=== PATIENT | male | born 1945 | race Caucasian/White ===

== ENCOUNTER 2017-01-17 13:16 | Emergency (ER) | payer MEDICARE, OTHER ==
[2017-01-17] MEDS ORDERED: Albuterol 2.5 MG/3 ML NEB.SOL* (0.083%) INH ONE (13:29)
[2017-01-17] MEDS ORDERED: Ipratropium 0.5MG/2.5ML NEB* 0.5 MG/2.5 ML NEB.SOLN INH ONE (13:29)
[2017-01-17] MEDS ORDERED: methylPREDNISolone 125 MG* 2 ML VIAL IM ONE (13:29)
[2017-01-17] MEDS ORDERED: Ipratropium 0.5MG/2.5ML NEB* 0.5 MG/2.5 ML NEB.SOLN ONE (13:31)
[2017-01-17] MEDS ORDERED: methylPREDNISolone 125 MG* 2 ML VIAL ONE (13:31)
[2017-01-17 13:44] VITALS: BP 136/74
--- NOTE | 2017-01-17 15:54 | UC ---
Milly Rodriguez Emily, scribed for Samira Bell DO on 01/17/17 at 1326 . Allergic Reaction HPI - HPI Summary HPI Summary: This patient is a 71 year old M presenting to urgent care with a chief complaint of allergic reaction that began around 1215. 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 Symptoms aggravated by nothing. Symptoms alleviated by nothing. Patient reports lightheadedness and SOB. Patient denies rash, dizzy/ lightheadedness, n/v/d/abd pain, cp, swelling of lips, tongue, and throat. Pt is allergic to peanuts. Pt denies ingesting any peanuts today. Pt reports symptoms being similar to previous allergic reactions. Medications reviewed this visit. - History of Current Complaint Stated Complaint: ALLERGIC REACTION Hx Obtained From: Patient Onset/Duration: Sudden Onset, Lasting Hours, Still Present Severity Initially: Moderate Severity Currently: Moderate Pain Intensity: 0 Aggravating Factor(s): Nothing Alleviating Factor(s): Nothing Associated Signs And Symptoms: Positive: Cough Wheezing, Difficulty Breathing, Other: - Positive lightheadedness and SOB. Negative swelling of lips, tongue, and throat. Negative: Abdominal Pain, Chest Pain, Diaphoresis, Hoarseness, Lightheadedness, Nausea, Rash, Syncope, Throat Tightening, Vomiting - Related Hx Possible Reaction To: Food - Allergies/Home Medications Allergies/Adverse Reactions: Allergies Allergy/AdvReac Type Severity Reaction Status Date / Time No Known Allergies Allergy Verified 01/17/17 13:27 Home Medications: Home Medications Albuterol HFA INHALER* [Ventolin HFA Inhaler*] 01/17/17 [History] Losartan TAB* [Cozaar TAB*] 01/17/17 [History] PMH/Surg Hx/FS Hx/Imm Hx - Additional Past Medical History Additional PMH: Peanut allergy Previously Healthy: No Other Endocrine History: Hyperlipidemia Cardiovascular History: Hypertension Respiratory History: Asthma - Surgical History Surgical History: Yes Surgery Procedure, Year, and Place: left knee surgery x2 - Family History Known Family History: Positive: None - Social History Occupation: Employed Full-time Lives: With Family Alcohol Use: Daily Substance Use Type: None Smoking Status (MU): Never Smoked Tobacco Review of Systems Skin: Other - Negative swelling of lips, tongue, and throat ENT: Negative Respiratory: Shortness Of Breath Cardiovascular: Negative Gastrointestinal: Negative Neurological: Other - denies dizziness/Lightheadedness All Other Systems Reviewed And Are Negative: Yes Physical Exam Triage Information Reviewed: Yes Appearance: Well-Appearing, No Pain Distress, Obese Vital Signs: Initial Vital Signs Temp 98.9 F 01/17/17 13:39 Pulse 83 01/17/17 13:39 Resp 16 01/17/17 13:39 BP 136/74 01/17/17 13:39 Pulse Ox 97 01/17/17 13:39 Vital Signs Reviewed: Yes Eyes: Positive: Conjunctiva Clear. Negative: Discharge ENT: Positive: Hearing grossly normal, Pharynx normal, Other: - No swelling of the lips or tongue. Negative: Nasal congestion, Nasal drainage, Tonsillar swelling, Tonsillar exudate, Trismus, Muffled/hoarse voice Neck exam: Normal Neck: Positive: Supple Respiratory: Positive: Respiratory distress - Moderate, Decreased breath sounds - diffuse, Accessory muscle use, Other: - Chest was so tight, wheezing only occurred when patient forcefully exhaled. Cardiovascular: Positive: RRR, No Murmur Abdomen Description: Positive: Nontender, Soft Bowel Sounds: Positive: Present Musculoskeletal Exam: Normal Neurological: Positive: Alert, Muscle Tone Normal Psychological Exam: Normal Psychological: Positive: Age Appropriate Behavior Skin: Positive: Other - No rash. Flushed but no urticarial Diagnostics - EKG Cardiac Rate: NL - EKG taken at 1320 reveals sinus rhythm no [address] changes and PVC noted. Ectopy: PVCs Re-Evaluation - Re-Evaluation First Eval Re-Evaluation Time: 14:30 Change: Improved Comment: No wheezing. Pt reported significant subjective improvement in the ease of breathing and flushing had resolved, no respiratory distress. o2 sat 96 % Allergic Reaction Course/Dx - Course Course Of Treatment: This patient is a 71 year old M presenting to urgent care with a chief complaint of allergic reaction that began around 1215. 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 Symptoms aggravated by nothing. Symptoms alleviated by nothing. Patient reports lightheadedness and SOB. Patient denies swelling of lips, tongue, and throat. Pt is allergic to peanuts. Pt denies ingesting any peanuts today. Pt reports symptoms being similar to previous allergic reactions. Medications reviewed this visit. Physical Exam Findings. Obese. Moderate respiratory distress. Chest was so tight, wheezing only occurred when patient forcefully exhaled. No swelling of the lips or tongue. No rash. Flushed , but no urticarial. On re-eval, air flow was significantly improved. No wheezing. Pt reported significant subjective improvement in the ease of breathing and flushing had resolved, no respiratory distress. Medical Decision Making. EKG taken at 1320 reveals sinus rhythm no [address] changes and PVC noted. In the urgent care course the patient was given Albuterol, Solu-Medrol, and Atrovent. Patient will be discharged with prescription for Epipen and Deltasone and follow up from PCP. The patient is agreeable with this plan. - Differential Dx/Diagnosis Provider Diagnoses: Anaphylaxis. General Allergic Reaction Discharge - Discharge Plan Condition: Stable Disposition: HOME Prescriptions: Epinephrine [Epipen 2-Toby] 0.3 mg IM ONCE PRN #1 inj PRN Reason: Allergy Symptoms predniSONE TAB* [Deltasone TAB*] 40 mg PO DAILY #8 tab Patient Education Materials: Anaphylaxis (ED), General Allergic Reaction (ED) Referrals: Non Staff,Doctor [Primary Care Provider] - (FOLLOW UP IN 3-5 DAYS) The documentation as recorded by the Milly luo Emily accurately reflects the service I personally performed and the decisions made by , Samira Bell DO.
== END 2017-01-17 14:55 | disposition home or self-care (01) ==
LOC: UCEAST 13:16
DX: T78.2XXA Anaphylactic shock, unspecified, initial encounter (principal); T78.40XA Allergy, unspecified, initial encounter; E78.5 Hyperlipidemia, unspecified; I10 Essential (primary) hypertension; J45.909 Unspecified asthma, uncomplicated; X58.XXXA Exposure to other specified factors, initial encounter
CPT/HCPCS: 93005; 99202; G0463; J2930; J7644

== ENCOUNTER 2017-09-20 13:24 | Emergency (ER) | payer MEDICARE, OTHER ==
[2017-09-20 13:34] VITALS: BP 155/87
--- NOTE | 2017-09-20 14:01 | UC ---
Throat Pain/Nasal Lázaro HPI - HPI Summary HPI Summary: Got symptoms of a "regular cold" about a month ago with nasal congestion, PND, cough. Most symptoms have resolved except for some occasional nasal drainage, all clear. Since the first week of symptoms pt has had no sense of smell and he continues to struggle with this and diminished taste. Denies fever, facial pain , malaise, wheezing, or other worsening. No previous ENT surgeries. - History of Current Complaint Chief Complaint: UCRespiratory Stated Complaint: COUGH,COLD SYMPTOMS Time Seen by Provider: 09/20/17 13:42 Hx Obtained From: Patient Onset/Duration: Sudden Onset, Lasting Weeks Severity: Mild Pain Intensity: 0 Cough: Productive Associated Signs & Symptoms: Positive: Nasal Discharge. Negative: Wheezing, Hoarseness, Sinus Discomfort, Vomiting, Rash - Allergies/Home Medications Allergies/Adverse Reactions: Allergies Allergy/AdvReac Type Severity Reaction Status Date / Time peanut Allergy Anaphylatic Verified 09/20/17 13:32 Shock PMH/Surg Hx/FS Hx/Imm Hx Cardiovascular History: Hypertension Respiratory History: Asthma - Surgical History Surgical History: Yes Surgery Procedure, Year, and Place: left knee surgery x2 - Family History Known Family History: Positive: Hypertension - Social History Occupation: Retired Lives: With Family Alcohol Use: Daily Alcohol Amount: 2 drinks Substance Use Type: None Smoking Status (MU): Never Smoked Tobacco Review of Systems Constitutional: Negative Skin: Negative Eyes: Negative ENT: Nasal Discharge Respiratory: Negative Cardiovascular: Negative Gastrointestinal: Negative Genitourinary: Negative Motor: Negative Neurovascular: Negative Musculoskeletal: Negative Neurological: Negative Psychological: Negative Is Patient Immunocompromised?: No All Other Systems Reviewed And Are Negative: Yes Physical Exam Triage Information Reviewed: Yes Appearance: Well-Appearing, Well-Nourished Vital Signs: Initial Vital Signs Temp 97.8 F 09/20/17 13:29 Pulse 91 09/20/17 13:29 Resp 18 09/20/17 13:29 BP 155/87 09/20/17 13:29 Pulse Ox 96 09/20/17 13:29 Vital Signs Reviewed: Yes Eye Exam: Normal Eyes: Positive: Conjunctiva Clear ENT: Positive: Hearing grossly normal, Pharynx normal, TMs normal, Other - visible pale bullard, globe-shaped region in L nasal passage separate from turbinate. Negative: Nasal drainage Dental Exam: Normal Neck exam: Normal Neck: Positive: Supple, Nontender, No Lymphadenopathy Respiratory Exam: Normal Respiratory: Positive: Chest non-tender, Lungs clear, Normal breath sounds, No respiratory distress Cardiovascular Exam: Normal Cardiovascular: Positive: RRR, No Murmur Musculoskeletal Exam: Normal Neurological Exam: Normal Neurological: Positive: Alert Psychological Exam: Normal Skin Exam: Normal Throat Pain/Nasal Course/Dx - Course Assessment/Plan: No pain or drainage suggestive of ARBS, discussed this with pt , he is ok treating with steroids for now. Encouraged him to come back here at any time if there is change for the worse and we can start him on abx. - Differential Dx/Diagnosis Provider Diagnoses: L nasal polyp Discharge - Sign-Out/Discharge Documenting (check all that apply): Discharge/Admit/Transfer - Discharge Plan Condition: Stable Disposition: HOME Prescriptions: Beclomethasone Dipropionate [Qnasl] 2 spray BOTH NARES DAILY #1 aer Patient Education Materials: Nasal Polyps (ED) Referrals: Frederick Colunga MD [Medical Doctor] - Additional Instructions: I expect you to have some gradual improvement with this spray over 1-2 weeks, but you still may benefit from ENT evaluation. You can follow up here or with an ENT near home. At any point if you develop fever, facial pain, or increasing drainage, please come back right away and we can start you on an antibiotic. I recommend you take this spray on each side of your nose twice daily for maximum effectiveness. - Billing Disposition and Condition Condition: STABLE Disposition: Home
== END 2017-09-20 14:04 | disposition home or self-care (01) ==
LOC: UCEAST 13:24
DX: J33.9 Nasal polyp, unspecified (principal); I10 Essential (primary) hypertension; J45.909 Unspecified asthma, uncomplicated; Z91.010 Allergy to peanuts
CPT/HCPCS: 99212; G0463

== ENCOUNTER 2018-09-19 13:09 | Emergency (ER) | payer MEDICARE, OTHER ==
[2018-09-19 13:25] VITALS: BP 146/82
--- NOTE | 2018-09-19 13:39 | UC ---
Skin Complaint HPI - HPI Summary HPI Summary: This patient is a 72-year-old male who presents to the urgent care with chief complaint of having a rash under his breast. He reports that is very itchy and not painful. He has no other complaints. He noticed this morning and he was afraid that he is developing shingles. Therefore he decided to come to the urgent care for further workup and management. - History of Current Complaint Chief Complaint: UCRash Time Seen by Provider: 09/19/18 13:26 Stated Complaint: RASH AND ITCHINESS Hx Obtained From: Patient Onset/Duration: Gradual Onset Skin Exposure Onset/Duration: Days Ago Onset Severity: Mild Current Severity: Mild Pain Intensity: 0 - Allergy/Home Medications Allergies/Adverse Reactions: Allergies Allergy/AdvReac Type Severity Reaction Status Date / Time peanut Allergy Anaphylatic Verified 09/19/18 13:18 Shock PMH/Surg Hx/FS Hx/Imm Hx Previously Healthy: Yes Endocrine History: Dyslipidemia Cardiovascular History: Hypertension - Surgical History Surgical History: Yes Surgery Procedure, Year, and Place: left knee surgery x2 - Family History Known Family History: Positive: Hypertension - Social History Alcohol Use: Daily Alcohol Amount: 2 drinks Substance Use Type: None Smoking Status (MU): Never Smoked Tobacco Review of Systems All Other Systems Reviewed And Are Negative: Yes Constitutional: Positive: Negative Skin: Positive: Rash Eyes: Positive: Negative ENT: Positive: Negative Respiratory: Positive: Negative Cardiovascular: Positive: Negative Gastrointestinal: Positive: Negative Genitourinary: Positive: Negative Motor: Positive: Negative Neurovascular: Positive: Negative Musculoskeletal: Positive: Negative Neurological: Positive: Negative Psychological: Positive: Negative Is Patient Immunocompromised?: No Physical Exam - Summary Physical Exam Summary: VITAL SIGNS: Reviewed. GENERAL: Patient is a well developed and nourished male who is lying comfortably in the stretcher. Patient is not in any acute respiratory distress. HEAD AND FACE: No signs of trauma. No ecchymosis, hematomas or skull depressions. No sinus tenderness. EYES: PERRLA, EOMI x 2, No injected conjunctiva, no nystagmus. EARS: Hearing grossly intact. Ear canals and tympanic membranes are within normal limits. MOUTH: Oropharynx within normal limits. NECK: Supple, trachea is midline, no adenopathy, no JVD, no carotid bruit, no c- spine tenderness, neck with full ROM. CHEST: Symmetric, no tenderness at palpation LUNGS: Clear to auscultation bilaterally. No wheezing or crackles. CVS: Regular rate and rhythm, S1 and S2 present, no murmurs or gallops appreciated. ABDOMEN: Soft, non-tender. No signs of distention. No rebound no guarding, and no masses palpated. Bowel sounds are normal. EXTREMITIES: FROM in all major joints, no edema, no cyanosis or clubbing. NEURO: Alert and oriented x 3. No acute neurological deficits. Speech is normal and follows commands. SKIN: Dry and warm, positive slight erythema under his breast. No vesicular rash and is not tender on palpation. Triage Information Reviewed: Yes Appearance: Well-Appearing Vital Signs: Initial Vital Signs Temp 98.2 F 09/19/18 13:20 Pulse 59 09/19/18 13:20 Resp 18 09/19/18 13:20 BP 146/82 09/19/18 13:20 Pulse Ox 98 09/19/18 13:20 Vital Signs Reviewed: Yes Course/Dx - Course Course Of Treatment: In the urgent care the patient is stable. I do not believe that the patient has shingles. I believe the patient has a contact dermatitis. Therefore the patient was given a prescription for Kenalog. However, he was advised to return to the urgent care if he develops any type of vesicular rashes. He understands and agrees. - Diagnoses Provider Diagnosis: Dermatitis Discharge - Sign-Out/Discharge Documenting (check all that apply): Patient Departure All imaging exams completed and their final reports reviewed: No Studies - Discharge Plan Condition: Stable Disposition: HOME Prescriptions: Triamcinolone 0.1% CREAM(NF) [Kenalog Cream 0.1%(NF)] 1 applic TOPICAL BID #30 gm Patient Education Materials: Dermatitis (ED) Referrals: No Primary Care Phys,NOPCP [Primary Care Provider] - [facility] [Outside] Additional Instructions: Take medications as instructed Increase your fluid intake F/U with PCP in the next 2-3 days Return to the if symptoms worsen - Billing Disposition and Condition Condition: STABLE Disposition: Home
== END 2018-09-19 13:41 | disposition home or self-care (01) ==
LOC: UCEAST 13:09
DX: L30.9 Dermatitis, unspecified (principal); E78.5 Hyperlipidemia, unspecified; I10 Essential (primary) hypertension
CPT/HCPCS: 99212; G0463